=== PATIENT | female | born 1975 | race Caucasian/White ===

== ENCOUNTER 2017-11-04 22:22 | Emergency (ER) | payer SELFPAY ==
[2017-11-04] MEDS ORDERED: IPRATRPIUM/ALBUTEROL 0.5/2.5MG 3 ML NEBU. (23:31)
[2017-11-04] MEDS: predniSONE 20 MG TABLET PO (23:38)
[2017-11-04] MEDS: IPRATRPIUM/ALBUTEROL 0.5/2.5MG 3 ML NEBU. NEB (23:44)
== END 2017-11-04 23:55 | disposition home or self-care (01) ==
LOC: ER 23:55
DX: J20.9 Acute bronchitis, unspecified (principal); Z79.899 Other long term (current) drug therapy
CPT/HCPCS: 94640; 99283-25; J7512; J7620

== ENCOUNTER 2018-05-05 00:13 | Emergency (ER) | payer SELFPAY ==
[~2018-05-05] VITALS: Ht 157.5 cm; Wt 72.6 kg
[~2018-05-05 00:13] MED LIST: AZIT250T6 PO; BENZ100C PO; PRED-220 PO
[2018-05-05 00:20] VITALS: BP 131/83
== END 2018-05-05 01:21 | disposition left against medical advice (07) ==
LOC: ER 00:13
DX: R10.9 Unspecified abdominal pain (principal); R11.10 Vomiting, unspecified; Z53.21 Procedure and treatment not carried out due to patient leaving prior to being seen by health care provider